=== PATIENT | male | born 1985 | race Caucasian/White ===

== ENCOUNTER 2016-11-30 10:03 | Emergency (ER) | payer OTHER ==
[~2016-11-30] VITALS: Ht 175.3 cm; Wt 78.0 kg
[2016-11-30 10:09] VITALS: BP 150/97; PULSE 101; RESP 13; TEMP 99.7; O2SAT 94
[2016-11-30 10:15] VITALS: BP 150/97; PULSE 102; RESP 13; TEMP 99.7; O2SAT 94
[2016-11-30 10:36] LABS: BASOPHIL % 0.1 % (0.0-2.0); EOSINOPHIL % 0.2 % (0.0-4.0); HEMATOCRIT 37.4 % (39.0-51.0); HEMO FLAGS DIFF FINAL; LYMPH % 16.9 % (9.0-44.0); LYMPHOCYTE # 0.9 TH/MM3 (1.0-4.8); MEAN CELL VOLUME 83.5 FL (80.0-100.0); MEAN CORPUSCULAR HEMOGLOBIN 29.5 PG (27.0-34.0); MEAN CORPUSCULAR HGB CONC 35.4 % (32.0-36.0); MONO % 10.2 % (0.0-8.0); NEUT % 72.6 % (16.0-70.0); PLATELET COUNT 157 TH/MM3 (150-450); RED BLOOD COUNT 4.48 MIL/MM3 (4.50-5.90); RED CELL DISTRIBUTION WIDTH 12.6 % (11.6-17.2); WHITE BLOOD COUNT 5.5 TH/MM3 (4.0-11.0)
[2016-11-30 10:38] LABS: BICARBONATE 30.3 MEQ/L (21.0-32.0); POTASSIUM 3.2 MEQ/L (3.5-5.1)
[2016-11-30] MEDS ORDERED: POTASSIUM CHLORIDE 20 MEQ CONTROLLED RELEASE TAB PO ONE (10:45)
[2016-11-30 12:12] VITALS: BP 125/74; PULSE 92; RESP 16; O2SAT 95
--- NOTE | 2016-11-30 12:29 | PD ---
HPI Chief Complaint: Alcohol/Drug Intoxication Time Seen by Provider: 10:10 Travel History International Travel<30 days: No Contact w/Intl Traveler<30days: No Traveled to known affect area: No History of Present Illness HPI 30-year-old male came to the emergency room brought by EMS after being found unresponsive. Patient was given 0.8 mg of IV Narcan which woke him up. Last dose of Narcan was at 9:45 AM. Patient currently is awake and answering questions. He said he was clean for a while and then today he got heroin and shot in his IV. He does not appear to be in any distress currently. He is very apologetic. Vital signs were stable. As per EMS the blood sugar was 245. [facility] Past Medical History Narrative Medical List of his past medical, surgical, social and family history was reviewed from the nursing note. Medical History: Denies Significant Hx Diminished Hearing: No Immunizations Current: Yes Past Surgical History Surgical History: No Previous Surgery Social History Alcohol Use: Yes Tobacco Use: No Substance Use: Yes (IV DILAUDID, cocaine AND CRACK) Allergies-Medications (Allergen,Severity, Reaction): Coded Allergies: No Known Allergies (Unverified , 11/30/16) Per pt. Comments No known drug allergies. Reported Meds & Prescriptions Reported Meds & Active Scripts Active No Active Prescriptions or Reported Medications Narrative Medication List of his home medications reviewed from the nursing note. Review of Systems Except as stated in HPI: all other systems reviewed are Neg Physical Exam Narrative GENERAL: Awake, alert, no obvious distress SKIN: Focused skin assessment warm/dry. HEAD: Atraumatic. Normocephalic. EYES: Pupils equal and round. No scleral icterus. No injection or drainage. ENT: No nasal bleeding or discharge. Mucous membranes pink and moist. NECK: Trachea midline. No JVD. CARDIOVASCULAR: Regular rate and rhythm. No murmur appreciated. RESPIRATORY: No accessory muscle use. Clear to auscultation. Breath sounds equal bilaterally. GASTROINTESTINAL: Abdomen soft, non-tender, nondistended. Hepatic and splenic margins not palpable. MUSCULOSKELETAL: No obvious deformities. No clubbing. No cyanosis. No edema. NEUROLOGICAL: Awake and alert. No obvious cranial nerve deficits. Motor grossly within normal limits. Normal speech. PSYCHIATRIC: Appropriate mood and affect; insight and judgment normal. Data Data Last Documented VS Vital Signs Date Time Temp Pulse Resp B/P Pulse Ox O2 Delivery O2 Flow Rate FiO2 11/30/16 12:12 92 16 125/74 95 Room Air 11/30/16 10:15 99.7 Orders Complete Blood Count With Diff (11/30/16 10:10) Basic Metabolic Panel (Bmp) (11/30/16 10:10) ^ Saline Lock (11/30/16 10:10) Potassium Chloride (Kcl) (11/30/16 10:45) Labs Laboratory Tests Test 11/30/16 10:15 White Blood Count 5.5 TH/MM3 Red Blood Count 4.48 MIL/MM3 Hemoglobin 13.2 GM/DL Hematocrit 37.4 % Mean Corpuscular Volume 83.5 FL Mean Corpuscular Hemoglobin 29.5 PG Mean Corpuscular Hemoglobin 35.4 % Concent Red Cell Distribution Width 12.6 % Platelet Count 157 TH/MM3 Mean Platelet Volume 7.6 FL Neutrophils (%) (Auto) 72.6 % Lymphocytes (%) (Auto) 16.9 % Monocytes (%) (Auto) 10.2 % Eosinophils (%) (Auto) 0.2 % Basophils (%) (Auto) 0.1 % Neutrophils # (Auto) 4.0 TH/MM3 Lymphocytes # (Auto) 0.9 TH/MM3 Monocytes # (Auto) 0.6 TH/MM3 Eosinophils # (Auto) 0.0 TH/MM3 Basophils # (Auto) 0.0 TH/MM3 CBC Comment DIFF FINAL Differential Comment Sodium Level 137 MEQ/L Potassium Level 3.2 MEQ/L Chloride Level 99 MEQ/L Carbon Dioxide Level 30.3 MEQ/L Anion Gap 8 MEQ/L Blood Urea Nitrogen 13 MG/DL Creatinine 1.22 MG/DL Estimat Glomerular Filtration 69 ML/MIN Rate Random Glucose 215 MG/DL Calcium Level 8.0 MG/DL MDM Medical Decision Making Medical Screen Exam Complete: Yes Emergency Medical Condition: Yes Medical Record Reviewed: Yes Differential Diagnosis Heroin overdose Narrative Course 12:27 PM patient was told that he would be observed for 4 hours from the time his last Narcan does. This ends at 1:30 PM and if he continues to do [facility] discharge him. Currently he is still stable and awake. Procedures EKG Prior to Arrival: No Diagnosis Primary Impression: Heroin overdose Qualified Code: T40.1X1A - Heroin overdose, accidental or unintentional, initial encounter Referrals: Primary Care Physician Additional Instructions: Please follow-up with your primary care in couple days. He should not be using illegal substances been injecting into the IV. It's very dangerous and full of potential of severe infections. Return to the ER if the condition worsens or any other new concerns. Scripts No Active Prescriptions or Reported Meds Disposition: 01 DISCHARGE HOME Condition: Stable Fei Bravo MD Nov 30, 2016 12:29
== END 2016-11-30 13:49 | disposition home or self-care (01) ==
LOC: NEPE 10:03
DX: T40.1X1A Poisoning by heroin, accidental (unintentional), initial encounter (principal)
CPT/HCPCS: 80048; 85025; 99283

== ENCOUNTER 2017-03-25 18:48 | Emergency (ER) | payer OTHER ==
[~2017-03-25] VITALS: Ht 172.7 cm; Wt 70.0 kg
[2017-03-25 20:36] VITALS: BP 128/58; PULSE 98; RESP 18; TEMP 98.1; O2SAT 99
--- NOTE | 2017-03-25 21:49 | PD ---
HPI Chief Complaint: Psychiatric Symptoms Time Seen by Provider: 21:46 Travel History International Travel<30 days: No Contact w/Intl Traveler<30days: No Traveled to known affect area: No History of Present Illness HPI Patient's 31-year-old male brought into the emergency department for psychiatric evaluation under Mcfadden act. The Mcfadden act report states patient was jumping into traffic, he was laying in the [place]bes flailing his legs and pulling his shorts down. He states it wasn't him and it was a case of mistaken identity. He has no physical complaints at this time. He denies any suicidal or homicidal ideations, he denies any hallucinations. He reports a history of IV drug use states he has not done that 5 years. He does endorse occasional marijuana and cocaine use. He denies any significant past medical history or drug allergies. [facility] Past Medical History Medical History: Denies Significant Hx Diminished Hearing: No Immunizations Current: Yes Social History Alcohol Use: Yes Tobacco Use: No Substance Use: Yes (IV DILAUDID, cocaine AND CRACK) Allergies-Medications (Allergen,Severity, Reaction): Coded Allergies: No Known Allergies (Unverified , 03/25/17) Per pt. Reported Meds & Prescriptions Reported Meds & Active Scripts Active No Active Prescriptions or Reported Medications Review of Systems Except as stated in HPI: all other systems reviewed are Neg Psychiatric: Positive: Mood Disorder, Substance Abuse Physical Exam Narrative GENERAL: Thin, well-developed, alert male. Appears jumpy in no acute distress. SKIN: Warm and dry. HEAD: Atraumatic. Normocephalic. EYES: Pupils equal and round. No scleral icterus. No injection or drainage. ENT: No nasal bleeding or discharge. Mucous membranes pink and moist. NECK: Trachea midline. No JVD. CARDIOVASCULAR: Regular rate and rhythm. RESPIRATORY: No accessory muscle use. Clear to auscultation. Breath sounds equal bilaterally. GASTROINTESTINAL: Abdomen soft, non-tender, nondistended. Hepatic and splenic margins not palpable. MUSCULOSKELETAL: Extremities without clubbing, cyanosis, or edema. No obvious deformities. NEUROLOGICAL: Awake and alert. No obvious cranial nerve deficits. Motor grossly within normal limits. Five out of 5 muscle strength in the arms and legs. Normal speech. PSYCHIATRIC: Appropriate mood and affect; insight and judgment normal. Data Data Last Documented VS Vital Signs Date Time Temp Pulse Resp B/P (MAP) Pulse Ox O2 Delivery O2 Flow Rate FiO2 03/25/17 20:36 98.1 98 18 128/58 (81) 99 Room Air Orders Orders Complete Blood Count With Diff (03/25/17 20:43) Comprehensive Metabolic Panel (03/25/17 20:43) Psych Screen (03/25/17 20:43) Drug Screen, Random Urine (03/25/17 20:43) Alcohol (Ethanol) (03/25/17 20:43) Salicylates (Aspirin) (03/25/17 20:43) Tylenol (Acetaminophen) (03/25/17 20:43) Labs Laboratory Tests Test 03/25/17 21:55 White Blood Count 11.6 TH/MM3 Red Blood Count 4.75 MIL/MM3 Hemoglobin 13.0 GM/DL Hematocrit 38.4 % Mean Corpuscular Volume 81.0 FL Mean Corpuscular Hemoglobin 27.4 PG Mean Corpuscular Hemoglobin Concent 33.8 % Red Cell Distribution Width 13.2 % Platelet Count 210 TH/MM3 Mean Platelet Volume 7.7 FL Neutrophils (%) (Auto) 77.3 % Lymphocytes (%) (Auto) 14.3 % Monocytes (%) (Auto) 7.8 % Eosinophils (%) (Auto) 0.4 % Basophils (%) (Auto) 0.2 % Neutrophils # (Auto) 9.0 TH/MM3 Lymphocytes # (Auto) 1.7 TH/MM3 Monocytes # (Auto) 0.9 TH/MM3 Eosinophils # (Auto) 0.0 TH/MM3 Basophils # (Auto) 0.0 TH/MM3 CBC Comment DIFF FINAL Differential Comment Blood Urea Nitrogen 20 MG/DL Creatinine 1.14 MG/DL Random Glucose 90 MG/DL Total Protein 7.9 GM/DL Albumin 4.1 GM/DL Calcium Level 8.6 MG/DL Alkaline Phosphatase 77 U/L Aspartate Amino Transf (AST/SGOT) 48 U/L Alanine Aminotransferase (ALT/SGPT) 44 U/L Total Bilirubin 0.9 MG/DL Sodium Level 133 MEQ/L Potassium Level 3.8 MEQ/L Chloride Level 99 MEQ/L Carbon Dioxide Level 26.5 MEQ/L Anion Gap 8 MEQ/L Estimat Glomerular Filtration Rate 74 ML/MIN Salicylates Level LESS THAN 1.7 MG/DL Urine Opiates Screen POS Acetaminophen Level LESS THAN 2.0 MCG/ML Urine Barbiturates Screen NEG Urine Amphetamines Screen POS Urine Benzodiazepines Screen NEG Urine Cocaine Screen NEG Urine Cannabinoids Screen NEG Ethyl Alcohol Level LESS THAN 3 MG/DL MDM Medical Decision Making Medical Screen Exam Complete: Yes Emergency Medical Condition: Yes Interpretation(s) Laboratory Tests Test 03/25/17 21:55 White Blood Count 11.6 TH/MM3 Red Blood Count 4.75 MIL/MM3 Hemoglobin 13.0 GM/DL Hematocrit 38.4 % Mean Corpuscular Volume 81.0 FL Mean Corpuscular Hemoglobin 27.4 PG Mean Corpuscular Hemoglobin Concent 33.8 % Red Cell Distribution Width 13.2 % Platelet Count 210 TH/MM3 Mean Platelet Volume 7.7 FL Neutrophils (%) (Auto) 77.3 % Lymphocytes (%) (Auto) 14.3 % Monocytes (%) (Auto) 7.8 % Eosinophils (%) (Auto) 0.4 % Basophils (%) (Auto) 0.2 % Neutrophils # (Auto) 9.0 TH/MM3 Lymphocytes # (Auto) 1.7 TH/MM3 Monocytes # (Auto) 0.9 TH/MM3 Eosinophils # (Auto) 0.0 TH/MM3 Basophils # (Auto) 0.0 TH/MM3 CBC Comment DIFF FINAL Differential Comment Blood Urea Nitrogen 20 MG/DL Creatinine 1.14 MG/DL Random Glucose 90 MG/DL Total Protein 7.9 GM/DL Albumin 4.1 GM/DL Calcium Level 8.6 MG/DL Alkaline Phosphatase 77 U/L Aspartate Amino Transf (AST/SGOT) 48 U/L Alanine Aminotransferase (ALT/SGPT) 44 U/L Total Bilirubin 0.9 MG/DL Sodium Level 133 MEQ/L Potassium Level 3.8 MEQ/L Chloride Level 99 MEQ/L Carbon Dioxide Level 26.5 MEQ/L Anion Gap 8 MEQ/L Estimat Glomerular Filtration Rate 74 ML/MIN Salicylates Level LESS THAN 1.7 MG/DL Urine Opiates Screen POS Acetaminophen Level LESS THAN 2.0 MCG/ML Urine Barbiturates Screen NEG Urine Amphetamines Screen POS Urine Benzodiazepines Screen NEG Urine Cocaine Screen NEG Urine Cannabinoids Screen NEG Ethyl Alcohol Level LESS THAN 3 MG/DL Vital Signs Date Time Temp Pulse Resp B/P (MAP) Pulse Ox O2 Delivery O2 Flow Rate FiO2 03/25/17 20:36 98.1 98 18 128/58 (81) 99 Room Air Differential Diagnosis Mood disorder versus substance abuse versus suicidal ideations versus psychosis versus metabolic abnormality versus other Narrative Course Patient was brought into the emergency Department under Mcfaddne act for psychiatric evaluation after having been witnessed acting abnormally and and potentially self harming way. He denies doing this. Patient's vital signs are stable. Mental health screening discussed with the patient. Psychiatric screen ordered. Labs reviewed, no acute findings identified. Urine drug screen is positive for methamphetamines and opiates. Patient is medically clear for psychiatric evaluation at this time. Diagnosis Primary Impression: Medical clearance for psychiatric admission Additional Impression: Substance abuse Scripts No Active Prescriptions or Reported Meds Condition: Stable Joselyn Rosado [facility] Mar 25, 2017 21:49
[2017-03-25 22:16] LABS: BASOPHIL % 0.2 % (0.0-2.0); EOSINOPHIL % 0.4 % (0.0-4.0); HEMATOCRIT 38.4 % (39.0-51.0); HEMO FLAGS DIFF FINAL; LYMPH % 14.3 % (9.0-44.0); LYMPHOCYTE # 1.7 TH/MM3 (1.0-4.8); MEAN CORPUSCULAR HEMOGLOBIN 27.4 PG (27.0-34.0); MEAN CORPUSCULAR HGB CONC 33.8 % (32.0-36.0); MONO % 7.8 % (0.0-8.0); NEUT % 77.3 % (16.0-70.0); PLATELET COUNT 210 TH/MM3 (150-450); RED BLOOD COUNT 4.75 MIL/MM3 (4.50-5.90); RED CELL DISTRIBUTION WIDTH 13.2 % (11.6-17.2); WHITE BLOOD COUNT 11.6 TH/MM3 (4.0-11.0)
[2017-03-25 22:38] LABS: ANION GAP 8 MEQ/L (5-15); AST (GOT) 48 U/L (15-37); BICARBONATE 26.5 MEQ/L (21.0-32.0); BLOOD UREA NITROGEN 20 MG/DL (7-18); CHLORIDE 99 MEQ/L (98-107); GLOMERULAR FILTRATION RATE 74 ML/MIN (>89); POTASSIUM 3.8 MEQ/L (3.5-5.1); SODIUM (NA) 133 MEQ/L (136-145)
[2017-03-25 22:39] LABS: ALT (GPT) 44 U/L (12-78)
[2017-03-25 22:40] LABS: ALCOHOL LESS THAN 3 MG/DL (0-5)
[2017-03-25 22:42] LABS: ALKALINE PHOSPHATASE 77 U/L (45-117); TOTAL BILIRUBIN ADULT 0.9 MG/DL (0.2-1.0)
[2017-03-25 22:46] LABS: ACETAMINOPHEN LESS THAN 2.0 MCG/ML (10.0-30.0)
[2017-03-25 23:58] VITALS: BP 109/60; PULSE 58; RESP 16
[2017-03-26 02:08] VITALS: BP 105/57; PULSE 56; RESP 18
[2017-03-26 06:25] VITALS: BP 107/63; PULSE 62; RESP 16
[2017-03-26 12:04] VITALS: BP 109/60; PULSE 63; RESP 16; O2SAT 98
--- NOTE | 2017-03-26 14:30 | PD ---
Physical Exam Time Seen by Provider: 14:29 ASHLEY Sampson has evaluated the patient, lifted a act and the patient will be discharged. Data Data Last Documented VS Vital Signs Date Time Temp Pulse Resp B/P (MAP) Pulse Ox O2 Delivery O2 Flow Rate FiO2 03/26/17 12:04 63 16 109/60 (76) 98 Room Air 03/25/17 20:36 98.1 Orders Orders Complete Blood Count With Diff (03/25/17 20:43) Comprehensive Metabolic Panel (03/25/17 20:43) Psych Screen (03/25/17 20:43) Drug Screen, Random Urine (03/25/17 20:43) Alcohol (Ethanol) (03/25/17 20:43) Salicylates (Aspirin) (03/25/17 20:43) Tylenol (Acetaminophen) (03/25/17 20:43) Diet Regular Basic (03/26/17 Breakfast) Diet Regular Basic (03/26/17 Lunch) Labs Laboratory Tests Test 03/25/17 21:55 White Blood Count 11.6 TH/MM3 Red Blood Count 4.75 MIL/MM3 Hemoglobin 13.0 GM/DL Hematocrit 38.4 % Mean Corpuscular Volume 81.0 FL Mean Corpuscular Hemoglobin 27.4 PG Mean Corpuscular Hemoglobin Concent 33.8 % Red Cell Distribution Width 13.2 % Platelet Count 210 TH/MM3 Mean Platelet Volume 7.7 FL Neutrophils (%) (Auto) 77.3 % Lymphocytes (%) (Auto) 14.3 % Monocytes (%) (Auto) 7.8 % Eosinophils (%) (Auto) 0.4 % Basophils (%) (Auto) 0.2 % Neutrophils # (Auto) 9.0 TH/MM3 Lymphocytes # (Auto) 1.7 TH/MM3 Monocytes # (Auto) 0.9 TH/MM3 Eosinophils # (Auto) 0.0 TH/MM3 Basophils # (Auto) 0.0 TH/MM3 CBC Comment DIFF FINAL Differential Comment Blood Urea Nitrogen 20 MG/DL Creatinine 1.14 MG/DL Random Glucose 90 MG/DL Total Protein 7.9 GM/DL Albumin 4.1 GM/DL Calcium Level 8.6 MG/DL Alkaline Phosphatase 77 U/L Aspartate Amino Transf (AST/SGOT) 48 U/L Alanine Aminotransferase (ALT/SGPT) 44 U/L Total Bilirubin 0.9 MG/DL Sodium Level 133 MEQ/L Potassium Level 3.8 MEQ/L Chloride Level 99 MEQ/L Carbon Dioxide Level 26.5 MEQ/L Anion Gap 8 MEQ/L Estimat Glomerular Filtration Rate 74 ML/MIN Salicylates Level LESS THAN 1.7 MG/DL Urine Opiates Screen POS Acetaminophen Level LESS THAN 2.0 MCG/ML Urine Barbiturates Screen NEG Urine Amphetamines Screen POS Urine Benzodiazepines Screen NEG Urine Cocaine Screen NEG Urine Cannabinoids Screen NEG Ethyl Alcohol Level LESS THAN 3 MG/DL MDM Supervised Visit with TOYA: No Narrative Course ASHLEY Chambers has evaluated the patient, lifted the Mcfadden act and the patient will be discharged home. Patient contracts safety. Denies suicidal or homicidal ideations. Patient will be provided community resource packet to DAMIAN RICHARDSON for follow-up. Has friends and family for support. Patient is medically cleared for discharge. Diagnosis Primary Impression: Medical clearance for psychiatric admission Additional Impression: Substance abuse Referrals: DYLAN (Out patient) [facility] Primary Care Physician Psychiatrist Skyler [facility] Patient Instructions: General Instructions, Polysubstance Abuse (ED) Additional Instruction: Contract safety to your self and others Stop using drugs Follow-up with psychiatry Follow-up with primary care provider Follow-up with Sridhar Beck Return to the emergency department immediately with worsening of symptoms Med/Other Pt SpecificInfo: No Meds Exist/No RX given Scripts No Active Prescriptions or Reported Meds Disposition: 01 DISCHARGE HOME Condition: Stable Tanya Zuleta Mar 26, 2017 14:30
--- NOTE | 2017-03-26 14:34 | PD ---
History of Present Illness Chief Complaint: Psychiatric Symptoms Time Seen by Provider: 14:10 Travel History International Travel<30 Days: No Contact w/Intl Traveler<30days: No Known affected area: No Legal Status Legal Status: Mc[employer] Act Mcfadden Act Signed By: Atul León History of Present Illness: History of Present Illness HPI Patient's 31-year-old male with no reported psychiatric history who is brought into the emergency department under Mcfadden act initiated bt TRENT. The Mcfadden act report states patient was jumping into traffic, he was laying in the [place] flailing his legs and pulling his shorts down. He denies any suicidal or homicidal ideations, he denies any hallucinations. He reports a history of IV drug use states he has not done that 5 years. Current toxicology is positive for amphetamines as well as opiates. He does endorse occasional marijuana and cocaine use. Patient seen. EMR reviewed. he has been monitored and has not presented any behavioral concerns. There is no psychosis and no lisa. Denies any suicidal or homicidal ideation, intent or plan. He continues to claim that this was a case of mistaken identity and that he was sitting on the side of the road waiting for a ride. He admits to use of substances but is not interested in treatment. PFSH Past Medical History Medical History: Denies Significant Hx Diabetes: No Patient Takes Glucophage: No Diminished Hearing: No Immunizations Current: Yes Tetanus Vaccination: < 5 Years Influenza Vaccination: No Past Surgical History Surgical History: No Previous Surgery Psychiatric History Psychiatric History Hx Psychiatric Treatment: DENIES any . HX OF MCFADDEN ACT WHILE UNDER THE INFLUENCE OF SUBSTANCES History of Inpatient Treatment: No Guns or firearms in home: No Social History Single male, homeless, unemployed. Hx Alcohol Use: Yes (OCCASIONAL) Hx Tobacco Use: No Hx Substance Use: Yes (IV DILAUDID, cocaine AND CRACK) Substance Use Type: Heroin, Cocaine, Synth Opiates-Pain Pills Other Substances Used: admits to IV dilaudid yesterday Hx of Substance Use Treatment: Yes ([facility]) Family Psychiatric History Negative Allergies-Medications (Allergen,Severity, Reaction): Coded Allergies: No Known Allergies (Unverified , 03/25/17) Per pt. Reported Meds & Prescriptions Reported Meds & Active Scripts Active No Active Prescriptions or Reported Medications Review of Systems Except as stated in HPI: all other systems reviewed are Neg Mental Status Examination Appearance: Appropriate Consciousness: Alert Orientation: x4 Motor Activity: Normal gait Speech: Unremarkable Language: Adequate Fund of Knowledge: Adequate Attention and Concentration: Adequate Memory: Unremarkable Mood: Appropriate Affect: Appropriate Thought Process & Associations: Intact, Logical, Goal directed Thought Content: Appropriate Hallucination Type: None Delusion Type: None Suicidal Ideation: No Suicidal Plan: No Suicidal Intention: No Homicidal Ideation: No Homicidal Plan: No Homicidal Intention: No Insight: Fair Judgment: Adequate MDM Medical Decision Making Medical Record Reviewed: Yes Assessment/Plan Patient's 31-year-old male with no reported psychiatric history who is brought into the emergency department under [employer] act initiated by TRENT. The Mcfadden act report states patient was jumping into traffic, he was laying in the [place] flailing his legs and pulling his shorts down. He denies any suicidal or homicidal ideations, he denies any hallucinations. Current toxicology is positive for amphetamines as well as opiates. He continues to deny any suicidal or homicidal ideation. There is no psychosis and no lisa. He continues to state that this was a case of mistaken identity. Patient does not present any cognitive deficits, presents no criteria for continued hold under the [employer] act. There is no evidence of any unstable mental illness. he is not motivated to engage in treatment for substance abuse. Lift BA and discharge. Psychiatrically clear for discharge. Orders Orders Complete Blood Count With Diff (03/25/17 20:43) Comprehensive Metabolic Panel (03/25/17 20:43) Psych Screen (03/25/17 20:43) Drug Screen, Random Urine (03/25/17 20:43) Alcohol (Ethanol) (03/25/17 20:43) Salicylates (Aspirin) (03/25/17 20:43) Tylenol (Acetaminophen) (03/25/17 20:43) Diet Regular Basic (03/26/17 Breakfast) Diet Regular Basic (03/26/17 Lunch) Results Vital Signs Date Time Temp Pulse Resp B/P (MAP) Pulse Ox O2 Delivery O2 Flow Rate FiO2 03/26/17 12:04 63 16 109/60 (76) 98 Room Air 03/26/17 06:25 62 16 107/63 (78) 03/26/17 02:08 56 18 105/57 (73) 03/25/17 23:58 58 16 109/60 (76) 03/25/17 20:36 98.1 98 18 128/58 (81) 99 Room Air Laboratory Tests Test 03/25/17 21:55 White Blood Count 11.6 Red Blood Count 4.75 Hemoglobin 13.0 Hematocrit 38.4 Mean Corpuscular Volume 81.0 Mean Corpuscular Hemoglobin 27.4 Mean Corpuscular Hemoglobin Concent 33.8 Red Cell Distribution Width 13.2 Platelet Count 210 Mean Platelet Volume 7.7 Neutrophils (%) (Auto) 77.3 Lymphocytes (%) (Auto) 14.3 Monocytes (%) (Auto) 7.8 Eosinophils (%) (Auto) 0.4 Basophils (%) (Auto) 0.2 Neutrophils # (Auto) 9.0 Lymphocytes # (Auto) 1.7 Monocytes # (Auto) 0.9 Eosinophils # (Auto) 0.0 Basophils # (Auto) 0.0 CBC Comment DIFF FINAL Differential Comment Blood Urea Nitrogen 20 Creatinine 1.14 Random Glucose 90 Total Protein 7.9 Albumin 4.1 Calcium Level 8.6 Alkaline Phosphatase 77 Aspartate Amino Transf (AST/SGOT) 48 Alanine Aminotransferase (ALT/SGPT) 44 Total Bilirubin 0.9 Sodium Level 133 Potassium Level 3.8 Chloride Level 99 Carbon Dioxide Level 26.5 Anion Gap 8 Estimat Glomerular Filtration Rate 74 Salicylates Level LESS THAN 1.7 Urine Opiates Screen POS Acetaminophen Level LESS THAN 2.0 Urine Barbiturates Screen NEG Urine Amphetamines Screen POS Urine Benzodiazepines Screen NEG Urine Cocaine Screen NEG Urine Cannabinoids Screen NEG Ethyl Alcohol Level LESS THAN 3 Diagnosis Primary Impression: Substance abuse Additional Impressions: Opiate abuse, continuous Methamphetamine abuse Psychiatrically Cleared: Yes Med/ Other Pt Specific Info: No Meds Exist/No RX given Prescriptions No Active Prescriptions or Reported Meds Disposition: 01 DISCHARGE HOME Condition: Stable Problem Qualifiers Trish Malcolm Mar 26, 2017 14:34
== END 2017-03-26 14:58 | disposition home or self-care (01) ==
LOC: NEPD 18:48 → NEPJ 03-26 14:58
DX: F19.10 Other psychoactive substance abuse, uncomplicated (principal); F11.10 Opioid abuse, uncomplicated; F15.10 Other stimulant abuse, uncomplicated; F12.90 Cannabis use, unspecified, uncomplicated; F14.90 Cocaine use, unspecified, uncomplicated; Z59.0 Homelessness
CPT/HCPCS: 80053; 80307; 85025; 99284

== ENCOUNTER 2017-04-02 21:12 | Emergency (ER) | payer SELFPAY ==
[~2017-04-02] VITALS: Ht 172.7 cm; Wt 70.0 kg
[2017-04-02 21:21] VITALS: BP 120/59; PULSE 132; RESP 30; TEMP 100.1; O2SAT 92
[2017-04-02] MEDS ORDERED: SODIUM CHLOR 0.9% 1000 ML INJ 1,000 ML IV ONE ×2 (21:30)
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
--- NOTE | 2017-04-02 21:40 | RADRPT ---
EXAM DATE/TIME: 04/02/2017 21:28 [place] COMPARISON: No previous studies available for comparison. INDICATIONS : Altered mental status. MEDICAL HISTORY : IV drug use. SURGICAL HISTORY : None. ENCOUNTER: Initial ACUITY: 1 day PAIN SCORE: Non-responsive. LOCATION: Bilateral chest FINDINGS: A single view of the chest demonstrates the lungs to be symmetrically aerated without evidence of mas s, infiltrate or effusion. The cardiomediastinal contours are unremarkable. Osseous structures are intact. CONCLUSION: Normal examination. Aleksandar Newman MD on April 02, 2017 at 21:38 Board Certified Radiologist. This report was verified electronically.
[2017-04-02 22:03] LABS: AUTOMATED NEUTROPHIL # 6.8 TH/MM3 (1.8-7.7); BASOPHIL % 0.2 % (0.0-2.0); EOSINOPHIL # 0.1 TH/MM3 (0-0.4); EOSINOPHIL % 0.6 % (0.0-4.0); HEMATOCRIT 35.6 % (39.0-51.0); HEMO FLAGS DIFF FINAL; LYMPH % 15.3 % (9.0-44.0); LYMPHOCYTE # 1.4 TH/MM3 (1.0-4.8); MEAN CELL VOLUME 81.2 FL (80.0-100.0); MEAN CORPUSCULAR HGB CONC 34.4 % (32.0-36.0); MONO % 7.7 % (0.0-8.0); NEUT % 76.2 % (16.0-70.0); PLATELET COUNT 171 TH/MM3 (150-450); RED BLOOD COUNT 4.38 MIL/MM3 (4.50-5.90); RED CELL DISTRIBUTION WIDTH 13.6 % (11.6-17.2); WHITE BLOOD COUNT 8.9 TH/MM3 (4.0-11.0)
[2017-04-02 22:21] LABS: ANION GAP 8 MEQ/L (5-15); BICARBONATE 24.8 MEQ/L (21.0-32.0); BLOOD UREA NITROGEN 12 MG/DL (7-18); CHLORIDE 106 MEQ/L (98-107); GLOMERULAR FILTRATION RATE 77 ML/MIN (>89); POTASSIUM 3.9 MEQ/L (3.5-5.1); SODIUM (NA) 139 MEQ/L (136-145)
[2017-04-02 22:25] LABS: ALCOHOL LESS THAN 3 MG/DL (0-5); CREATINE KINASE 321 U/L (39-308)
--- NOTE | 2017-04-03 19:59 | EKG ---
Date Performed: 04/02/2017 Time Performed: 21:31:48 PTAGE: 31 years EKG: SINUS TACHYCARDIA INDETERMINATE AXIS ABNORMAL RHYTHM ECG PREVIOUS TRACING : 07/03/2015 22.28 Compared to prior tracing no significant change DOCTOR: Waqar Jara Interpretating Date/Time 04/03/2017 19:58:02
== END 2017-04-02 23:15 | disposition home or self-care (01) ==
LOC: NEPE 21:12
DX: F15.10 Other stimulant abuse, uncomplicated (principal); R94.31 Abnormal electrocardiogram [ECG] [EKG]; R00.0 Tachycardia, unspecified
CPT/HCPCS: 71010; 80048; 80307; 82550; 82552; 84484; 85025; 93005; 96360; 99285; J7030

== ENCOUNTER 2017-06-14 18:43 | Emergency (ER) | payer SELFPAY ==
[~2017-06-14] VITALS: Ht 177.8 cm; Wt 70.0 kg
[2017-06-14 18:44] VITALS: BP 158/122; PULSE 163; RESP 22; TEMP 103.1; O2SAT 100
[2017-06-14] MEDS ORDERED: ONDANSETRON HCL 4 MG/2 ML VIAL ONE (18:47)
[2017-06-14] MEDS ORDERED: LORazepam 2 MG/ML VIAL ONE (18:51)
[2017-06-14] MEDS ORDERED: SODIUM CHLOR 0.9% 1000 ML INJ 1,000 ML IV ONE ×2 (18:52→19:00)
[2017-06-14] MEDS ORDERED: SODIUM CHLORIDE 0.9% FLUSH 10 ML FLUSH IVF PRN (19:00)
[2017-06-14] MEDS ORDERED: LORazepam 2 MG/ML VIAL IV PUSH ONE ×4 (19:00→21:15)
[2017-06-14] MEDS ORDERED: ONDANSETRON HCL 4 MG/2 ML VIAL IV PUSH ONE (19:15)
[2017-06-14 19:33] LABS: AUTOMATED NEUTROPHIL # 11.7 TH/MM3 (1.8-7.7); BASOPHIL # 0.1 TH/MM3 (0-0.2); BASOPHIL % 0.6 % (0.0-2.0); EOSINOPHIL % 0.2 % (0.0-4.0); HEMATOCRIT 38.2 % (39.0-51.0); HEMOGLOBIN 12.9 GM/DL (13.0-17.0); LYMPH % 24.9 % (9.0-44.0); LYMPHOCYTE # 4.6 TH/MM3 (1.0-4.8); MEAN CELL VOLUME 82.5 FL (80.0-100.0); MEAN CORPUSCULAR HGB CONC 33.9 % (32.0-36.0); MEAN PLATELET VOLUME 7.4 FL (7.0-11.0); MONO % 11.6 % (0.0-8.0); MONOCYTE # 2.2 TH/MM3 (0-0.9); NEUT % 62.7 % (16.0-70.0); PLATELET COUNT 308 TH/MM3 (150-450); RED BLOOD COUNT 4.62 MIL/MM3 (4.50-5.90); RED CELL DISTRIBUTION WIDTH 14.3 % (11.6-17.2); WHITE BLOOD COUNT 18.6 TH/MM3 (4.0-11.0)
--- NOTE | 2017-06-14 19:40 | PD ---
HPI Chief Complaint: OD/ Ingestion Time Seen by Provider: 19:14 Travel History International Travel<30 days: No Contact w/Intl Traveler<30days: No Traveled to known affect area: No History of Present Illness HPI 31-year-old male was brought in by EMS for substance abuse. Patient stated that he took Lortab and methamphetamine this evening. Patient was agitated. PFSH Past Medical History Medical History: Unable to Obtain Diabetes: No Diminished Hearing: No Integumentary: Yes (HX CELLULITUS TO BLAT HAND) Immunizations Current: Yes Tetanus Vaccination: < 5 Years Influenza Vaccination: No Past Surgical History Surgical History: No Previous Surgery Social History Alcohol Use: Yes (OCCASIONAL) Tobacco Use: No Substance Use: Yes (IV DILAUDID, METH, CRACK, HEROIN) Allergies-Medications (Allergen,Severity, Reaction): Coded Allergies: No Known Allergies (Unverified , 04/02/17) Per pt. Reported Meds & Prescriptions Reported Meds & Active Scripts Active No Active Prescriptions or Reported Medications Review of Systems General / Constitutional: No: Fever Eyes: No: Visual changes HENT: No: Headaches Cardiovascular: No: Chest Pain or Discomfort Respiratory: No: Shortness of Breath Gastrointestinal: No: Abdominal Pain Genitourinary: No: Dysuria Musculoskeletal: No: Pain Skin: No Rash Neurologic: No: Weakness Psychiatric: No: Depression Endocrine: No: Polydipsia Hematologic/Lymphatic: No: Easy Bruising Physical Exam Narrative GENERAL: Well-nourished, well-developed patient. Patient's very agitated, not complaining of anything at this point. SKIN: Patient is diaphoretic. HEAD: Normocephalic. EYES: No scleral icterus. No injection or drainage. Pupils 1.5 mm equal reactive. NECK: Supple, trachea midline. No JVD or lymphadenopathy. CARDIOVASCULAR: Regular rate and rhythm without murmurs, gallops, or rubs. RESPIRATORY: Breath sounds equal bilaterally. No accessory muscle use. GASTROINTESTINAL: Abdomen soft, non-tender, nondistended. MUSCULOSKELETAL: No cyanosis, or edema. BACK: Nontender without obvious deformity. No CVA tenderness. Neurologic exam: Patient's agitated combative. Patient does not answer questions appropriately. Patient moves all extremities well. No obvious focal neurological deficit. Data Data Last Documented VS Vital Signs Date Time Temp Pulse Resp B/P (MAP) Pulse Ox O2 Delivery O2 Flow Rate FiO2 12/28/17 21:57 101 16 111/72 (85) 99 Nasal Cannula 2.00 06/14/17 18:44 103.1 Orders Orders Ondansetron Inj (Zofran Inj) (06/14/17 18:47) Lorazepam Inj (Ativan Inj) (06/14/17 18:51) Complete Blood Count With Diff (06/14/17 18:52) Comprehensive Metabolic Panel (06/14/17 18:52) Iv Access Insert/Monitor (06/14/17 18:52) Ecg Monitoring (06/14/17 18:52) Oximetry (06/14/17 18:52) Lorazepam Inj (Ativan Inj) (06/14/17 19:00) Sodium Chloride 0.9% Flush (Ns Flush) (06/14/17 19:00) Sodium Chlor 0.9% 1000 Ml Inj (Ns 1000 M (06/14/17 18:52) Drug Screen, Random Urine (06/14/17 18:52) Alcohol (Ethanol) (06/14/17 18:52) Salicylates (Aspirin) (06/14/17 18:52) Tylenol (Acetaminophen) (06/14/17 18:52) Sodium Chlor 0.9% 1000 Ml Inj (Ns 1000 M (06/14/17 19:00) Ondansetron Inj (Zofran Inj) (06/14/17 19:15) Lorazepam Inj (Ativan Inj) (06/14/17 19:15) Lorazepam Inj (Ativan Inj) (06/14/17 19:30) Dextrose 50% In Jose A (Vial) Inj (D50w (Vi (06/14/17 20:45) Dextrose 50% In Jose A (Vial) Inj (D50w (Vi (06/14/17 21:00) Lorazepam Inj (Ativan Inj) (06/14/17 21:15) Labs Laboratory Tests Test 06/14/17 19:00 06/15/17 02:50 White Blood Count 18.6 TH/MM3 Red Blood Count 4.62 MIL/MM3 Hemoglobin 12.9 GM/DL Hematocrit 38.2 % Mean Corpuscular Volume 82.5 FL Mean Corpuscular Hemoglobin 28.0 PG Mean Corpuscular Hemoglobin Concent 33.9 % Red Cell Distribution Width 14.3 % Platelet Count 308 TH/MM3 Mean Platelet Volume 7.4 FL Neutrophils (%) (Auto) 62.7 % Lymphocytes (%) (Auto) 24.9 % Monocytes (%) (Auto) 11.6 % Eosinophils (%) (Auto) 0.2 % Basophils (%) (Auto) 0.6 % Neutrophils # (Auto) 11.7 TH/MM3 Lymphocytes # (Auto) 4.6 TH/MM3 Monocytes # (Auto) 2.2 TH/MM3 Eosinophils # (Auto) 0.0 TH/MM3 Basophils # (Auto) 0.1 TH/MM3 CBC Comment AUTO DIFF Differential Total Cells Counted 100 Neutrophils % (Manual) 65 % Lymphocytes % 25 % Monocytes % 10 % Neutrophils # (Manual) 12.1 TH/MM3 Differential Comment FINAL DIFF MANUAL Platelet Estimate NORMAL Platelet Morphology Comment NORMAL Blood Urea Nitrogen 20 MG/DL Creatinine 1.32 MG/DL Random Glucose 54 MG/DL Total Protein 8.2 GM/DL Albumin 4.1 GM/DL Calcium Level 9.0 MG/DL Alkaline Phosphatase 98 U/L Aspartate Amino Transf (AST/SGOT) 75 U/L Alanine Aminotransferase (ALT/SGPT) 42 U/L Total Bilirubin 1.3 MG/DL Sodium Level 133 MEQ/L Potassium Level 4.5 MEQ/L Chloride Level 97 MEQ/L Carbon Dioxide Level 22.3 MEQ/L Anion Gap 14 MEQ/L Estimat Glomerular Filtration Rate 62 ML/MIN Salicylates Level LESS THAN 1.7 MG/DL Acetaminophen Level LESS THAN 2.0 MCG/ML Ethyl Alcohol Level LESS THAN 3 MG/DL Urine Opiates Screen POS Urine Barbiturates Screen NEG Urine Amphetamines Screen POS Urine Benzodiazepines Screen NEG Urine Cocaine Screen NEG Urine Cannabinoids Screen NEG [facility] Medical Decision Making Medical Screen Exam Complete: Yes Emergency Medical Condition: Yes Interpretation(s) 9 PM. CBC WBC 18.6. Hemoglobin 12.9 hematocrit 30.2. Normal differential. Sodium 133. Chloride 97. Anion gap 14. BUN 20. Creatinine 1.32. GFR 62. Random glucose 54. Urine drug screen positive for opiates and amphetamine. Differential Diagnosis Differential diagnosis including substance-induced mood disorder, electrolyte abnormality, overdose. Narrative Course 31-year-old male with substance abuse, tachycardia, sweating, combative. Normal saline solution 1 L IV bolus. Ativan 2 mg IV given. Ativan 4 mg IV given 2. D50 50 mL IV given. Diagnosis Primary Impression: Substance induced mood disorder Additional Impression: Hypoglycemia Patient Instructions: General Instructions Additional Instructions: Advised [facility]. Med/Other Pt SpecificInfo: No Meds Exist/No RX given Scripts No Active Prescriptions or Reported Meds Disposition: 01 DISCHARGE HOME Condition: Stable Elias Steinberg MD Jun 14, 2017 19:40
[2017-06-14 20:08] LABS: ALBUMIN 4.1 GM/DL (3.4-5.0); ALKALINE PHOSPHATASE 98 U/L (45-117); ALT (GPT) 42 U/L (12-78); AST (GOT) 75 U/L (15-37); BICARBONATE 22.3 MEQ/L (21.0-32.0); BLOOD UREA NITROGEN 20 MG/DL (7-18); CHLORIDE 97 MEQ/L (98-107); CREATININE 1.32 MG/DL (0.60-1.30); GLOMERULAR FILTRATION RATE 62 ML/MIN (>89); GLUCOSE,RANDOM 54 MG/DL (74-106); SODIUM (NA) 133 MEQ/L (136-145); TOTAL BILIRUBIN ADULT 1.3 MG/DL (0.2-1.0); TOTAL PROTEIN 8.2 GM/DL (6.4-8.2)
[2017-06-14 20:09] LABS: ACETAMINOPHEN LESS THAN 2.0 MCG/ML (10.0-30.0)
[2017-06-14 20:10] LABS: LYMPHOCYTES 25 % (9-44); MONOCYTES 10 % (0-8); NEUTROPHIL # MANUAL DIFF 12.1 TH/MM3 (1.8-7.7); POLYS (SEG NEUTROPHILS) 65 % (16-70)
[2017-06-14] MEDS ORDERED: DEXTROSE 50% IN WATER 50 ML VIAL(D50) IV PUSH ONE ×2 (20:45→21:00)
[2017-06-14 21:02] VITALS: RESP 16; O2SAT 98
[2017-06-14 21:57] VITALS: BP 111/72; PULSE 101; RESP 16; O2SAT 99
== END 2017-06-15 06:56 | disposition home or self-care (01) ==
LOC: NEPC 18:43
DX: F19.94 Other psychoactive substance use, unspecified with psychoactive substance-induced mood disorder (principal); E16.2 Hypoglycemia, unspecified
CPT/HCPCS: 80053; 80307; 85007; 85027; 96361; 96374; 96375; 96376; 99284; J2060; J2405; J7030

== ENCOUNTER 2017-10-19 09:24 | Emergency (ER) | payer OTHER ==
[~2017-10-19] VITALS: Ht 175.3 cm; Wt 80.0 kg
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
[2017-10-19 09:56] VITALS: BP 150/72; PULSE 111; RESP 18; TEMP 98.1; O2SAT 97
== END 2017-10-19 11:35 | disposition home or self-care (01) ==
LOC: NEPD 09:24
DX: F11.10 Opioid abuse, uncomplicated (principal); F19.90 Other psychoactive substance use, unspecified, uncomplicated; F15.90 Other stimulant use, unspecified, uncomplicated; F14.90 Cocaine use, unspecified, uncomplicated
CPT/HCPCS: 80307; 99283

== ENCOUNTER 2017-11-24 10:06 | Emergency (ER) | payer SELFPAY ==
[~2017-11-24] VITALS: Ht 177.8 cm; Wt 70.0 kg
[2017-11-24 10:21] VITALS: BP 117/72; PULSE 135; RESP 21; TEMP 98.3; O2SAT 99
[2017-11-24] MEDS ORDERED: SODIUM CHLOR 0.9% 1000 ML INJ 1,000 ML IV SCH (10:21)
[2017-11-24 10:27] VITALS: BP 117/72; PULSE 137; RESP 21; TEMP 98.3; O2SAT 98
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
[2017-11-24] MEDS ORDERED: HALOPERIDOL LACTATE 5 MG/ML AMP IV ONE (10:30)
[2017-11-24] MEDS ORDERED: SODIUM CHLORIDE 0.9% FLUSH 10 ML FLUSH IV FLUSH PRN (10:30)
[2017-11-24] MEDS ORDERED: LORazepam 2 MG/ML VIAL IV PUSH ONE (10:30)
--- NOTE | 2017-11-24 10:57 | RADRPT ---
EXAM DATE: 11/24/2017 10:47 AM EDT AGE/SEX: 31 years / Male INDICATIONS: Altered mental status. CLINICAL DATA: This is the patient's initial encounter. Patient reports that signs and symptoms have been present for 1 day and indicates a pain score of Nonresponsive. MEDICAL/SURGICAL HISTORY: . Endocarditis, substance abuse. None. RADIATION DOSE: 36.08 CTDI (mGy) COMPARISON: No prior exams available for comparison. TECHNIQUE: CT of the head without contrast. Using automated exposure control and adjustment of the mA and/or kV according to patient size, radiation dose was kept as low as reasonably achievable to ob tain optimal diagnostic quality images. FINDINGS: Cerebrum: The ventricles are normal for age. No evidence of midline shift, mass lesion, hemorrhage or acute infarction. No extraaxial fluid collections are seen. Posterior Fossa: The cerebellum and brainstem are intact. The 4th ventricle is midline. The cerebe llopontine angle is unremarkable. Extracranial: The visualized portion of the orbits is intact. Skull: The calvaria is intact. No evidence of skull fracture. CONCLUSION: 1. Negative CT Head non contrast. Electronically signed by: Kyler Ibanez MD 11/24/2017 10:55 AM EDT
[2017-11-24 11:41] LABS: AUTOMATED NEUTROPHIL # 12.6 TH/MM3 (1.8-7.7); BASOPHIL # 0.1 TH/MM3 (0-0.2); BASOPHIL % 0.5 % (0.0-2.0); EOSINOPHIL # 0.1 TH/MM3 (0-0.4); EOSINOPHIL % 0.6 % (0.0-4.0); HEMATOCRIT 40.8 % (39.0-51.0); HEMOGLOBIN 13.5 GM/DL (13.0-17.0); LYMPHOCYTE # 2.8 TH/MM3 (1.0-4.8); MEAN CELL VOLUME 83.5 FL (80.0-100.0); MEAN CORPUSCULAR HEMOGLOBIN 27.7 PG (27.0-34.0); MEAN CORPUSCULAR HGB CONC 33.1 % (32.0-36.0); MEAN PLATELET VOLUME 7.9 FL (7.0-11.0); MONO % 5.4 % (0.0-8.0); MONOCYTE # 0.9 TH/MM3 (0-0.9); NEUT % 76.5 % (16.0-70.0); PLATELET COUNT 415 TH/MM3 (150-450); RED BLOOD COUNT 4.89 MIL/MM3 (4.50-5.90); RED CELL DISTRIBUTION WIDTH 14.8 % (11.6-17.2); WHITE BLOOD COUNT 16.5 TH/MM3 (4.0-11.0)
[2017-11-24 12:08] LABS: ALBUMIN 3.8 GM/DL (3.4-5.0); ALT (GPT) 52 U/L (12-78); AST (GOT) 32 U/L (15-37); BICARBONATE 27.5 MEQ/L (21.0-32.0); BLOOD UREA NITROGEN 13 MG/DL (7-18); CALCIUM 8.4 MG/DL (8.5-10.1); CHLORIDE 100 MEQ/L (98-107); CREATININE 1.03 MG/DL (0.60-1.30); GLOMERULAR FILTRATION RATE 83 ML/MIN (>89); GLUCOSE,RANDOM 206 MG/DL (74-106); SODIUM (NA) 137 MEQ/L (136-145)
[2017-11-24 12:10] LABS: ALKALINE PHOSPHATASE 87 U/L (45-117); TOTAL BILIRUBIN ADULT 0.5 MG/DL (0.2-1.0); TOTAL PROTEIN 8.2 GM/DL (6.4-8.2); TROPONIN I LESS THAN 0.02 NG/ML (0.02-0.05)
[2017-11-24 12:21] LABS: ACETAMINOPHEN LESS THAN 2.0 MCG/ML (10.0-30.0)
[2017-11-24 12:29] VITALS: BP 128/77; PULSE 77; RESP 15; O2SAT 98
[2017-11-24 14:30] VITALS: BP 129/77; PULSE 80; RESP 15; O2SAT 97
[2017-11-24 14:34] LABS: BILIRUBIN, URINE NEG (NEG); BLOOD, URINE NEG (NEG); GLUCOSE,URINE NEG (NEG); KETONE, URINE NEG (NEG); MUCUS URINE FEW /lpf (OCC); NITRITE,URINE NEG (NEG); PH, URINE 6.5 (5.0-8.5); SQUAMOUS EPITHELIAL CELL URINE <1 /hpf (0-5); URINE COLOR YELLOW (YELLW/STRAW); URINE LEUKOCYTE ESTERASE NEG (NEG)
[2017-11-24 16:58] VITALS: BP 138/68; PULSE 63; RESP 15; O2SAT 97
[2017-11-24 20:12] VITALS: BP 136/80; PULSE 71; RESP 16; O2SAT 98
--- NOTE | 2017-11-25 15:13 | EKG ---
Date Performed: 11/24/2017 Time Performed: 10:23:18 PTAGE: 31 years EKG: SINUS TACHYCARDIA ABNORMAL RHYTHM ECG NO PREVIOUS TRACING DOCTOR: Amish Cook Interpretating Date/Time 11/25/2017 15:11:20
== END 2017-11-24 22:47 | disposition home or self-care (01) ==
LOC: NEPC 10:06
DX: F19.10 Other psychoactive substance abuse, uncomplicated (principal); R45.1 Restlessness and agitation; D72.829 Elevated white blood cell count, unspecified; R00.0 Tachycardia, unspecified; R94.31 Abnormal electrocardiogram [ECG] [EKG]
CPT/HCPCS: 70450; 80053; 80307; 81001; 82550; 84443; 84484; 85025; 93005; 96361; 96374; 96375; 99285; J1630; J2060; J7030

== ENCOUNTER 2017-12-12 01:48 | Emergency (ER) | payer OTHER ==
[~2017-12-12] VITALS: Ht 170.2 cm; Wt 65.0 kg
[2017-12-12 01:59] VITALS: BP 114/76; PULSE 100; RESP 12; TEMP 100.2; O2SAT 100
--- NOTE | 2017-12-12 02:35 | PD ---
HPI Chief Complaint: Alcohol/Drug Intoxication Time Seen by Provider: 02:33 Travel History International Travel<30 days: No Contact w/Intl Traveler<30days: No Traveled to known affect area: No History of Present Illness HPI This is a 32-year-old male who presents under March[place] act initiated by the Police Department. According to his paperwork he was observed running in the street and yelling and he was felt to be under the influence of several narcotics as well as alcohol. The patient does endorse frequent drug use. Symptoms are moderate, aggravated by drug use with no relieving factors. He has been seen here numerous times in the past under similar conditions. He has no other complaints at this time. [facility] Past Medical History Medical History: Denies Significant Hx Hx Anticoagulant Therapy: No Cardiovascular Problems: No Chemotherapy: No Cerebrovascular Accident: No Diabetes: No Diminished Hearing: No Respiratory: No Integumentary: Yes (HX CELLULITUS TO BLAT HAND) Immunizations Current: Yes ?: Not Past Surgical History Surgical History: No Previous Surgery Hysterectomy: No Social History Alcohol Use: Yes (OCCASIONAL) Tobacco Use: No Substance Use: Yes (IV DILAUDID, METH, CRACK, HEROIN ) Allergies-Medications (Allergen,Severity, Reaction): Coded Allergies: No Known Allergies (Unverified Adverse Reaction, Unknown, 12/12/17) Per pt. Reported Meds & Prescriptions Reported Meds & Active Scripts Active No Active Prescriptions or Reported Medications Review of Systems Except as stated in HPI: all other systems reviewed are Neg Physical Exam Narrative GENERAL: Well-developed well-nourished male in no acute distress. SKIN: Warm and dry. HEAD: Atraumatic. Normocephalic. EYES: Pupils equal and round. No scleral icterus. No injection or drainage. ENT: No nasal bleeding or discharge. Mucous membranes pink and moist. NECK: Trachea midline. No JVD. CARDIOVASCULAR: Regular rate and rhythm. No murmur appreciated. RESPIRATORY: No accessory muscle use. Clear to auscultation. Breath sounds equal bilaterally. GASTROINTESTINAL: Abdomen soft, non-tender, nondistended. Hepatic and splenic margins not palpable. MUSCULOSKELETAL: No obvious deformities. No clubbing. No cyanosis. No edema. NEUROLOGICAL: Awake and alert. No obvious cranial nerve deficits. Motor grossly within normal limits. Hyperverbal. Data Data Last Documented VS Vital Signs Date Time Temp Pulse Resp B/P (MAP) Pulse Ox O2 Delivery O2 Flow Rate FiO2 12/12/17 01:59 100.2 100 12 114/76 (89) 100 Orders Orders Ed Discharge Order (12/12/17 04:55) MDM Medical Decision Making Medical Screen Exam Complete: Yes Emergency Medical Condition: Yes Medical Record Reviewed: Yes Differential Diagnosis Polysubstance abuse, intoxication, acute psychosis Narrative Course The patient will remain here until he is sober and then he will be discharged. Diagnosis Primary Impression: Polysubstance abuse Referrals: [facility] Pt SpecificInfo: No Change to Meds Scripts No Active Prescriptions or Reported Meds Disposition: 01 DISCHARGE HOME Condition: Stable Alfredo Lemon Dec 12, 2017 02:35
== END 2017-12-12 05:05 | disposition home or self-care (01) ==
LOC: NEPD 01:48
DX: F19.129 Other psychoactive substance abuse with intoxication, unspecified (principal)
CPT/HCPCS: 99281

== ENCOUNTER 2018-04-02 23:18 | Inpatient (IN) ==
[2018-04-02] MEDS ORDERED: Sod Chloride 0.9% Inj 1,000 ML IV.SIG ONE (23:27)
[2018-04-03 00:02] LABS: Baso # (Auto) 0.1 th/mm3 (0.0-0.2); Baso % (Auto) 0.5 % (0.0-2.0); Hematocrit 39.1 % (39.0-51.0); Hemoglobin 13.4 gm/dL (13.0-17.0); Lymph # (Auto) 1.7 th/mm3 (1.0-4.8); Lymph % (Auto) 6.4 % (9.0-44.0); Mean Corpuscular HGB Conc 34.4 % (32.0-36.0); Mean Corpuscular Hemoglobin 27.8 pg (27.0-34.0); Mean Platelet Volume 8.2 fL (7.0-11.0); Mono % (Auto) 3.7 % (0.0-8.0); Neut # (Auto) 24.4 th/mm3 (1.8-7.7); Neut % (Auto) 89.4 % (16.0-70.0); Platelet Count 276 th/mm3 (150-450); Red Blood Count 4.83 mil/mm3 (4.50-5.90); White Blood Count 27.3 th/mm3 (4.0-11.0)
--- NOTE | 2018-04-03 00:13 | ED ---
HPI General Chief complaint: Psychiatric Symptoms Stated complaint: marchman act/ dbpd Time Seen by Provider: 04/02/18 23:23 Source: patient Limitations: altered mental status History of Present Illness HPI narrative: The patient is a 32 year old male who presents to the [facility] emergency department with a history of reportedly not feeling well since yesterday. He reports that he believes that he got a bad batch of heroin. The patient reports that he is an IV drug user. He reports that he does occasionally use crack cocaine, cocaine, and methamphetamine. He reports that he has been agitated since then, nauseated, vomited x1, and also experiencing muscle cramping. He reports that he did have a cramp in the left side of his lower chest wall earlier today. He denies having any shortness of breath. He denies having any diarrhea. He last moved his bowels earlier today. The patient reports having agitation and difficulty sitting still. Otherwise on review of systems, the patient denies having any known recent fevers, cough, congestion, neck pain, shortness of breath, abdominal pain, urinary symptoms, or neurologic symptoms. Related Data Home Medications Medication Instructions Recorded Confirmed No Known Home Medications 04/02/18 04/02/18 Allergies Allergy/AdvReac Type Severity Reaction Status Date / Time No Known Allergies Allergy Verified 04/02/18 23:57 Review of Systems ROS: all other systems reviewed are negative [facility] Family History Family History Other Family history normal Social History Social History Substance History: Active Abuse Second Hand Smoke Exposure: No Smoking Status: Never smoker How Often Do You Have a Drink Containing Alcohol: 4 or more times a week Recent Travel in [facility] within the Last 8 Weeks: No Recent Out of Country Travel within the Last 8 Weeks: No Substance Abuse Detail Heroin: Substance Use Status: Active Route Used Substance Abuse: Intramuscular and Intravenously Reason for Use: Feels Good and Get High Immunization History Tetanus Immunization: Unsure Exam Const General: cooperative and acute distress (Moderately agitated on arrival, having difficulty holding still. The patient is intermittently twitching his extremities.) Nutritional Appearance: well nourished Orientation: alert, awake and oriented x3 HENMT Head: normocephalic and atraumatic Nose: no nasal discharge and no epistaxis Mouth: other (Tacky mucous membranes.) Eyes Sclera: normal sclerae Pupils: PERRL Neck Neck: trachea midline and no JVD Resp Effort & Inspection: no use of accessory muscles Auscultation: clear to auscultation bilaterally Cardio Rate: tachycardic (Sinus tachycardia in the 1 teens, no pulse deficits to the extremities on simultaneous auscultation and palpation of his radial artery.) Rhythm: regular rhythm Heart Sounds: no murmurs GI Inspection: non-distended Palpation: soft, no hepatosplenomegaly, no guarding, not rigid and nontender Skin General: dry skin (warm) Neuro General: alert and awake Cranial Nerves: CN's II-XI intact bilaterally Speech: other (The patient has pressured speech.) Motor: strength 5/5 throughout, no movement abnormalities noted and other ( Agitated psychomotor activity on examination.) Sensory Exam: no sensory deficits noted Extrem General: normal to inspection, no clubbing, no cyanosis and no edema Psych Mood: labile mood Affect: irritable affect Judgment: fair Course Initial Documented Vital Signs Temperature 99.0 F 04/02/18 23:54 Pulse Rate 130 H 04/02/18 23:54 Respiratory Rate 20 04/02/18 23:54 Blood Pressure 172/91 H 04/02/18 23:54 Pulse Oximetry 100 04/02/18 23:54 Last Documented Vital Signs Temperature 99.0 F 04/02/18 23:54 Pulse Rate 91 H 04/03/18 00:16 Respiratory Rate 14 04/03/18 00:16 Blood Pressure 172/91 H 04/02/18 23:54 Pulse Oximetry 95 04/03/18 00:16 Medical Decision Making MDM Narrative Medical decision making narrative: During the course of the patient's emergency department visit, the patient's history, examination, and differential diagnosis were reviewed with the patient. The patient was placed on a quality assurance monitor body with oximetry and frequent blood pressure monitoring. The patient had IV access obtained and blood work sent for analysis. Diagnostic evaluation was started regarding the patient's current symptoms. The patient was initially provided normal saline IV fluids, Zofran for nausea, Ativan 1 mg IV for agitation. The patient's diagnostic studies are remarkable for a chemistry that shows an acute kidney injury with a BUN of 31, creatinine 2.04. The patient was continued on normal saline IV fluids. The patient's blood sugar on chemistry was 50, however this was rechecked at the bedside and noted to be 111. CPK was elevated at 1110, troponin I within normal limits. Urine drug screen was positive for opiates, cocaine, salicylate is 1.8, alcohol level less than 3, Tylenol less than 2, CBC is remarkable for a leukocytosis which is likely related to acute agitation as the patient has no other signs of infection. The patient will be admitted to the hospital for altered mentation and acute kidney injury after opiate and cocaine intoxication. The patient's case including history, pertinent physical examination findings, and laboratory studies were discussed with Dr. Rivers. It was agreed that the patient would be admitted to the hospitalist service. The patient's results were discussed with the patient, including the plan of care. I explained that further testing and/ or monitoring is indicated based on the patient's history, examination, and/ or laboratory findings. Therefore, I recommended admission for additional evaluation. The patient expressed understanding and was agreeable with this plan. The patient was admitted to the hospital in guarded condition and sent to a bed under the care of the [facility] service. Medical Screen Exam Complete: Yes Emergency Medical Condition: Yes Differential Diagnosis Differential Diagnosis: Sympathomimetic toxicity, versus rhabdomyolysis, versus acute kidney injury, versus electrolyte derangements Medical Records Medical records reviewed: Yes I reviewed the patient's medical records. Lab Data Lab results reviewed: Yes I reviewed the patient's lab results. Result diagrams: 04/02/18 23:35 04/02/18 23:35 Lab Results 04/02/18 04/02/18 04/03/18 Range/Units 23:35 23:35 04:46 WBC 27.3 H (4.0-11.0) th/mm3 RBC 4.83 (4.50-5.90) mil/mm3 Hgb 13.4 (13.0-17.0) gm/dL Hct 39.1 (39.0-51.0) % MCV 81.0 (80.0-100.0) fL MCH 27.8 (27.0-34.0) pg MCHC 34.4 (32.0-36.0) % RDW 15.0 (11.6-17.2) % Plt Count 276 (150-450) th/mm3 MPV 8.2 (7.0-11.0) fL Neut % (Auto) 89.4 H (16.0-70.0) % Lymph % (Auto) 6.4 L (9.0-44.0) % [place] % (Auto) 3.7 (0.0-8.0) % Eos % (Auto) 0.0 (0.0-4.0) % Baso % (Auto) 0.5 (0.0-2.0) % Neut # (Auto) 24.4 H (1.8-7.7) th/mm3 Lymph # (Auto) 1.7 (1.0-4.8) th/mm3 [place] # (Auto) 1.0 H (0.0-0.9) th/mm3 Eos # (Auto) 0.0 (0.0-0.4) th/mm3 Baso # (Auto) 0.1 (0.0-0.2) th/mm3 WBC Differential . Differential Comment Auto diff final Sodium 135 L (136-145) meq/L Potassium 4.3 (3.5-5.1) meq/L Chloride 95 L (98-107) meq/L Carbon Dioxide 25.0 (21.0-32.0) meq/L Anion Gap 15 (5-15) meq/L BUN 31 H (7-18) mg/dL Creatinine 2.04 H (0.60-1.30) mg/dL Estimated GFR 38 L (>89) mL/min POC Glucose 111 H (68-110) mg/dl Random Glucose 50 L (74-106) mg/dL Calcium 9.8 (8.5-10.1) mg/dL Total Bilirubin 1.9 H (0.2-1.0) mg/dL AST 48 H (15-37) U/L ALT 31 (12-78) U/L Alkaline Phosphatase 91 (45-117) U/L Total Creatine Kinase 1110 H (39-308) U/L CK-MB (CK-2) 6.2 H (0.5-3.6) ng/mL CK-MB (CK-2) % 0.6 (0.0-4.0) % Troponin I Less than 0.02 L (0.02-0.05) ng/mL Total Protein 9.2 H (6.4-8.2) g/dL Albumin 4.7 (3.4-5.0) g/dL Lipase 56 L (73-393) U/L Serum Alcohol Less than 3 (0-5) mg/dL Discharge Plan Discharge Disposition Patient Disposition: 30 Still Patient Discharge Details Diagnosis: Altered mental status, Polysubstance abuse, Acute kidney injury Physicians Team ED Provider: Amanda Kirby Primary Care Provider: UNKNOWN, Attending Provider: Gina Rivers Status ED Status: Admitted Observation Patient
[2018-04-03 00:16] LABS: Albumin 4.7 g/dL (3.4-5.0); Anion Gap 15 meq/L (5-15); Aspartate Aminotransferase 48 U/L (15-37); Blood Urea Nitrogen 31 mg/dL (7-18); Calcium 9.8 mg/dL (8.5-10.1); Chloride 95 meq/L (98-107); Glomerular Filtration Rate 38 mL/min (>89); Glucose,Random 50 mg/dL (74-106); Lipase 56 U/L (73-393); Potassium 4.3 meq/L (3.5-5.1); Sodium 135 meq/L (136-145)
[2018-04-03 00:17] LABS: Alanine Aminotransferase 31 U/L (12-78)
[2018-04-03 00:30] LABS: Alkaline Phosphatase 91 U/L (45-117); Creatine Kinase 1110 U/L (39-308); Total Protein 9.2 g/dL (6.4-8.2)
[2018-04-03 00:45] LABS: CKMB Percent 0.6 % (0.0-4.0); Creatine Kinase MB 6.2 ng/mL (0.5-3.6)
[2018-04-03] MEDS ORDERED: Sod Chloride 0.9% Inj 1,000 ML IV.SIG ONE (01:17)
[2018-04-03] MEDS ORDERED: Bisacodyl 10 MG Supp RECTAL PRN (03:54)
[2018-04-03] MEDS ORDERED: Acetaminophen 325 MG Tablet PO PRN (03:54)
--- NOTE | 2018-04-03 04:20 | P.HP ---
History of Present Illness Service: [facility] Primary Care Physician: UNKNOWN History of Present Illness: 32-year-old male with a past medical history significant for IV drug abuse presents to the emergency department for the evaluation of not feeling well for the past day. The patient states that he believes he got a bad batch of heroin. He is an IV drug user who reports using cocaine, heroin and methamphetamines. He reports since injecting what he believed to be heroin he has been agitated, nauseated and has had emesis x1. He also complains of muscle cramping. He denies any chest pain or shortness of breath. No fevers/ chills. Review of Systems All other systems reviewed negative except as stated in HPI [facility] - History History Provided By: Patient, Law Enforcement - Medical History Medical History: Medical History (Last Reviewed 04/03/18 @ 04:14 by Gina Rivers MD) Patient denies medical problems IVDU (intravenous drug user) - Surgical History Surgical History: Surgical History (Last Reviewed 04/03/18 @ 04:14 by Gina Rivers MD) No history of previous surgery - Family History Family History: Family History (Last Updated 04/03/18 @ 04:14 by Gina Rivers MD) Other Family history normal - Tobacco History Second Hand Smoke Exposure: No Smoking Status: Never smoker - Alcohol History How Often Do You Have a Drink Containing Alcohol: 4 or more times a week - Substance Use History Substance History: Active Abuse - Substance Use Type Heroin Status: Active Route Used: Intramuscular, Intravenously Reason for Use: Feels Good, Get High - Travel History Recent Travel in the [place] Within the Last 8 Weeks: No Recent Travel Out of the Country Within the Last 8 Weeks: No - Immunization History Tetanus Immunization: Unsure Medications and Allergies Active Medications: Active Medications Acetaminophen (Tylenol) 650 mg PO Q4H PRN PRN Reason: Temp > 100.4 Bisacodyl (Dulcolax Supp) 10 mg RECTAL DAILY PRN PRN Reason: SEVERE CONSITIPATION Sodium Chloride (Ns Inj) 1,000 mls @ 125 mls/hr IV.CONT .Q8H DEEPIKA Ondansetron HCl (Zofran Inj) 4 mg IV.PUSH Q6H PRN PRN Reason: NAUSEA OR VOMITING Sennosides (Senokot) 17.2 mg PO Q12H PRN PRN Reason: Moderate Constipation Allergies Allergy/AdvReac Type Severity Reaction Status Date / Time No Known Allergies Allergy Verified 04/02/18 23:57 Home Medications Medication Instructions Recorded Confirmed Type No Known Home Medications 04/02/18 04/02/18 History Exam Vital signs: Vital Signs 04/02/18 23:54 04/02/18 23:57 04/03/18 00:16 Temperature 99.0 F Pulse Rate 130 H 112 H 91 H Respiratory Rate 20 14 Blood Pressure 172/91 H Pulse Oximetry 100 95 Intake & Output 04/02/18 04/02/18 04/03/18 06:59 18:59 06:59 Intake Total 1999 Balance 1999 Weight 65 kg Intake: IV 1999 NS Inj 1,000 ML @ Wide Open IV. 1999 SIG BOLUS ONE Rx#:[id number] Narrative: Gen.: Agitated and twitching Head: Normocephalic. Atraumatic. EENT: Pupils equal round and reactive to light. Nose without drainage. Airway intact. Throat without injection. Cardiovascular: Regular rate and rhythm. No murmurs, rubs or gallops. Respiratory: Lungs clear to auscultation bilaterally. No wheezes or rhonchi. Abdomen: Soft, nontender, nondistended. No peritoneal signs. Musculoskeletal: No gross deformities. No edema. Skin: No obvious rashes or erythema. Neuro: Sensory and motor grossly intact. Cranial nerves II through XII grossly intact. Results - Labs CBC & Chem 7: 04/02/18 23:35 04/02/18 23:35 Labs: Laboratory Results - last 24 hr 04/02/18 04/02/18 23:35 23:35 WBC 27.3 H RBC 4.83 Hgb 13.4 Hct 39.1 MCV 81.0 MCH 27.8 MCHC 34.4 RDW 15.0 Plt Count 276 MPV 8.2 Neut % (Auto) 89.4 H Lymph % (Auto) 6.4 L [place] % (Auto) 3.7 Eos % (Auto) 0.0 Baso % (Auto) 0.5 Neut # (Auto) 24.4 H Lymph # (Auto) 1.7 [place] # (Auto) 1.0 H Eos # (Auto) 0.0 Baso # (Auto) 0.1 WBC Differential . Differential Comment Auto diff final Sodium 135 L Potassium 4.3 Chloride 95 L Carbon Dioxide 25.0 Anion Gap 15 BUN 31 H Creatinine 2.04 H Estimated GFR 38 L Random Glucose 50 L Calcium 9.8 Total Bilirubin 1.9 H AST 48 H ALT 31 Alkaline Phosphatase 91 Total Creatine Kinase 1110 H CK-MB (CK-2) 6.2 H CK-MB (CK-2) % 0.6 Troponin I Less than 0.02 L Total Protein 9.2 H Albumin 4.7 Lipase 56 L Serum Alcohol Less than 3 Caprini VTE Risk Assessment Caprini VTE Risk Assessment: No/Low Risk (score <= 1) Caprini Risk Assessment Model: Point Value = 1 Point Value = 2 Point Value = 3 Point Value = 5 Age 41-60 Minor surgery BMI > 25 kg/m2 Swollen legs Varicose veins or History of unexplained or recurrent spontaneous Oral contraceptives or hormone replacement Sepsis (< 1 month) Serious lung disease, including pneumonia (< 1 month) Abnormal pulmonary function Acute myocardial infarction Congestive heart failure (< 1 month) History of inflammatory bowel disease Medical patient at bed rest Age 61-74 Arthroscopic surgery Major open surgery (> 45 min) Laparoscopic surgery (> 45 min) Malignancy Confined to bed (> 72 hours) Immobilizing plaster cast Central venous access Age >= 75 History of VTE Family history of VTE Factor V Leiden Prothrombin [id number] Lupus anticoagulant Anticardiolipin antibodies Elevated serum homocysteine Heparin-induced thrombocytopenia Other congenital or acquired thrombophilia Stroke (< 1 month) Elective arthroplasty Hip, pelvis, or leg fracture Acute spinal cord injury (< 1 month) Prophylaxis Regimen: Total Risk Factor Score Risk Level Prophylaxis Regimen 0-1 Low Early ambulation 2 Moderate Order ONE of the following: *Sequential Compression Device (SCD) *Heparin 5000 units SQ BID 3-4 Higher Order ONE of the following medications: *Heparin 5000 units SQ TID *Enoxaparin/Lovenox 40 mg SQ daily (WT < 150 kg, CrCl > 30 mL/min) *Enoxaparin/Lovenox 30 mg SQ daily (WT < 150 kg, CrCl > 10-29 mL/min) *Enoxaparin/Lovenox 30 mg SQ BID (WT < 150 kg, CrCl > 30 mL/min) AND/OR *Sequential Compression Device (SCD) 5 or more Highest Order ONE of the following medications: *Heparin 5000 units SQ TID (Preferred with Epidurals) *Enoxaparin/Lovenox 40 mg SQ daily (WT < 150 kg, CrCl > 30 mL/min) *Enoxaparin/Lovenox 30 mg SQ daily (WT < 150 kg, CrCl > 10-29 mL/min) *Enoxaparin/Lovenox 30 mg SQ BID (WT < 150 kg, CrCl > 30 mL/min) AND *Sequential Compression Device (SCD) Assessment and Plan - Plan Assessment/plan: 1. Acute kidney injury/rhabdo CK 1110 Creatinine 2.04, baseline 1 IV fluid hydration Monitor renal function 2. IV drug abuse Cessation counseling provided FEN Renal diet Electrolyte: Monitor and replete as needed NS at 125 cc/hour
[2018-04-03] MEDS: Sod Chloride 0.9% Inj 1,000 ML IV.CONT SCH ×3 (04:39→22:14)
--- NOTE | 2018-04-03 10:21 | P.PN ---
Subjective Interval history: Follow-up polysubstance abuse, rhabdomyolysis and acute kidney injury. Patient does not have any complaints. He is drowsy but easily arousable oriented x4. States he is working on his drug use was on his way to [facility] Physical Exam Vital signs: Vital Signs 04/02/18 23:54 04/02/18 23:57 04/03/18 00:16 Temperature 99.0 F Pulse Rate 130 H 112 H 91 H Respiratory Rate 20 14 Blood Pressure 172/91 H Pulse Oximetry 100 95 04/03/18 04:58 04/03/18 06:51 04/03/18 08:00 Temperature 98.7 F 97.1 F L Pulse Rate 85 67 86 Respiratory Rate 14 15 17 Blood Pressure 124/75 111/62 111/58 L Pulse Oximetry 97 100 Intake & Output 04/02/18 04/03/18 04/03/18 18:59 06:59 18:59 Intake Total 1999 Balance 1999 Weight 65.9 kg Intake: IV 1999 NS Inj 1,000 ML @ Wide Open IV. 1999 SIG BOLUS ONE Rx#:[id number] Other: Weight On Admission 70.45 kg Narrative: Gen.: Well-developed and well-nourished Cardiovascular: Regular rate and rhythm. No murmurs, rubs or gallops. Respiratory: Lungs clear to auscultation bilaterally. No wheezes or rhonchi. Abdomen: Soft, nontender, nondistended. No peritoneal signs. Musculoskeletal: No gross deformities. No edema. Skin: No obvious rashes or erythema. Track felder bilateral antecubital area no signs of infection Neuro: Sensory and motor grossly intact. Cranial nerves II through XII grossly intact. Drowsy but easily arousable patient received Ativan Results - Labs CBC & Chem 7: 04/02/18 23:35 04/02/18 23:35 Laboratory Results - last 24 hr 04/02/18 04/02/18 04/03/18 23:35 23:35 04:46 WBC 27.3 H RBC 4.83 Hgb 13.4 Hct 39.1 MCV 81.0 MCH 27.8 MCHC 34.4 RDW 15.0 Plt Count 276 MPV 8.2 Neut % (Auto) 89.4 H Lymph % (Auto) 6.4 L [place] % (Auto) 3.7 Eos % (Auto) 0.0 Baso % (Auto) 0.5 Neut # (Auto) 24.4 H Lymph # (Auto) 1.7 [place] # (Auto) 1.0 H Eos # (Auto) 0.0 Baso # (Auto) 0.1 WBC Differential . Differential Comment Auto diff final Sodium 135 L Potassium 4.3 Chloride 95 L Carbon Dioxide 25.0 Anion Gap 15 BUN 31 H Creatinine 2.04 H Estimated GFR 38 L POC Glucose 111 H Random Glucose 50 L Calcium 9.8 Total Bilirubin 1.9 H AST 48 H ALT 31 Alkaline Phosphatase 91 Total Creatine Kinase 1110 H CK-MB (CK-2) 6.2 H CK-MB (CK-2) % 0.6 Troponin I Less than 0.02 L Total Protein 9.2 H Albumin 4.7 Lipase 56 L Serum Alcohol Less than 3 - Procedures none Assessment and Plan - Plan 1. Acute kidney injury/rhabdo CK 1110 Creatinine 2.04, baseline 1 IV fluid hydration Monitor renal function Check urinalysis 2. IV drug abuse Cessation counseling provided Follow-up with [facility] consult patient case coordinator FEN Renal diet Electrolyte: Monitor and replete as needed NS at 125 cc/hour Discharge Planning: Possible discharge tomorrow
[2018-04-03 16:30] LABS: Amphetamine Screen,Urine Neg (Neg); Barbiturate Screen,Urine Neg (Neg); Cannabinoid Screen,Urine Neg (Neg); Cocaine Screen,Urine Pos (Neg)
[2018-04-03 16:33] LABS: Opiate Screen,Urine Pos (Neg)
[2018-04-04] MEDS: Sod Chloride 0.9% Inj 1,000 ML IV.CONT SCH ×2 (02:21→03:23)
[2018-04-04 05:09] LABS: Bilirubin,Urine Negative (Negative); Clarity,Urine Clear (Clear); Color,Urine Yellow (Yellw/Straw); Glucose,Urine (UA) Negative (Negative); Leukocyte Esterase,Urine Negative (Negative); Mucus,Urine Few /lpf (Occasional); Nitrite,Urine Negative (Negative); Specific Gravity,Urine 1.028 (1.002-1.035)
[2018-04-04 06:27] LABS: Baso % (Auto) 0.5 % (0.0-2.0); Eos % (Auto) 1.3 % (0.0-4.0); Lymph % (Auto) 27.2 % (9.0-44.0); Mean Corpuscular HGB Conc 33.3 % (32.0-36.0); Mean Corpuscular Hemoglobin 27.7 pg (27.0-34.0); Mean Corpuscular Volume 83.3 fL (80.0-100.0); Mean Platelet Volume 7.8 fL (7.0-11.0); Mono # (Auto) 0.4 th/mm3 (0.0-0.9); Neut # (Auto) 2.2 th/mm3 (1.8-7.7); Platelet Count 147 th/mm3 (150-450); Red Blood Count 4.32 mil/mm3 (4.50-5.90); Red Cell Distribution Width 15.5 % (11.6-17.2); White Blood Count 3.7 th/mm3 (4.0-11.0)
[2018-04-04 07:38] LABS: Alanine Aminotransferase 25 U/L (12-78); Alkaline Phosphatase 55 U/L (45-117); Anion Gap 9 meq/L (5-15); Aspartate Aminotransferase 34 U/L (15-37); Blood Urea Nitrogen 19 mg/dL (7-18); Carbon Dioxide 24.1 meq/L (21.0-32.0); Chloride 105 meq/L (98-107); Creatine Kinase 331 U/L (39-308); Glomerular Filtration Rate Greater Than 89 mL/min (>89); Glucose,Random 135 mg/dL (74-106); Potassium 3.6 meq/L (3.5-5.1); Sodium 138 meq/L (136-145); Total Protein 6.2 g/dL (6.4-8.2)
[2018-04-04 07:55] LABS: CKMB Percent 1.5 % (0.0-4.0)
[2018-04-04 08:08] VITALS: BP 116/68; RESP 18; TEMP 97.7; O2SAT 97
--- NOTE | 2018-04-04 08:31 | P.PN ---
Subjective Interval history: Follow-up acute kidney injury, rhabdomyolysis and polysubstance abuse. He is doing okay no complaints alert and oriented x4. He is voiding. He is definitely seeking treatment with illicit drug use. States he was on his way there when he felt sick because of acute kidney injury Physical Exam Vital signs: Vital Signs 04/03/18 12:00 04/03/18 16:00 04/03/18 20:00 Temperature 97.4 F L 97.4 F L 97.6 F Pulse Rate 71 65 74 Respiratory Rate 17 16 18 Blood Pressure 98/56 L 108/59 L 114/68 Pulse Oximetry 98 98 98 04/03/18 20:07 04/04/18 00:00 04/04/18 04:00 Temperature 96.8 F L 97.4 F L Pulse Rate 79 58 L 46 L Respiratory Rate 15 15 Blood Pressure 119/65 115/73 Pulse Oximetry 99 98 04/04/18 08:00 Temperature 97.7 F Pulse Rate 68 Respiratory Rate 18 Blood Pressure 116/68 Pulse Oximetry 97 Intake & Output 04/03/18 04/04/18 04/04/18 18:59 06:59 18:59 Intake Total 1000 / 1000 1000 / 1000 Output Total 650 / 650 Balance 1000 / 1000 350 / 350 Weight 70.4 kg Intake: IV 1000 / 1000 1000 / 1000 NS Inj 1,000 ML @ 125 mls/hr IV 1000 / 1000 1000 / 1000 .CONT .Q8H [id number] Rx#:[id number] Output: Urine 650 / 650 Other: # Voids 2 Narrative: Gen.: Well-developed and well-nourished Cardiovascular: Regular rate and rhythm. No murmurs, rubs or gallops. Respiratory: Lungs clear to auscultation bilaterally. No wheezes or rhonchi. Abdomen: Soft, nontender, nondistended. No peritoneal signs. Musculoskeletal: No gross deformities. No edema. Skin: No obvious rashes or erythema. Track felder bilateral antecubital area no signs of infection Neuro: Sensory and motor grossly intact. Cranial nerves II through XII grossly intact. Alert and oriented Results - Labs CBC & Chem 7: 04/04/18 05:37 04/04/18 05:37 Laboratory Results - last 24 hr 04/03/18 04/04/18 04/04/18 15:50 04:26 05:37 WBC RBC Hgb Hct MCV MCH MCHC RDW Plt Count MPV Neut % (Auto) Lymph % (Auto) Mclean % (Auto) Eos % (Auto) Baso % (Auto) Neut # (Auto) Lymph # (Auto) Mclean # (Auto) Eos # (Auto) Baso # (Auto) WBC Differential Differential Comment Sodium 138 Potassium 3.6 Chloride 105 D Carbon Dioxide 24.1 Anion Gap 9 BUN 19 H Creatinine 0.79 Estimated GFR Greater than 89 Random Glucose 135 H Calcium 8.0 L D Total Bilirubin 0.5 AST 34 ALT 25 Alkaline Phosphatase 55 Total Creatine Kinase 331 H CK-MB (CK-2) 5.0 H CK-MB (CK-2) % 1.5 Total Protein 6.2 L D Albumin 3.0 L D Urine Color Yellow Urine Clarity Clear Urine pH 6.0 Ur Specific [place] 1.028 Urine Protein Negative Urine Glucose (UA) Negative Urine Ketones Trace H Urine Occult Blood Negative Urine Nitrate Negative Urine Bilirubin Negative Urine Urobilinogen Less than 2 Ur Leukocyte Esterase Negative Urine RBC 1 Urine WBC 1 Urine Mucus Few H Micro UA Comment Culture not ind Ur Microscopic Review Not Reportable Urine Culture Comments Culture not ind Urine Opiates Screen Pos H Ur Barbiturates Screen Neg Ur Amphetamines Screen Neg U Benzodiazepines Scrn Neg Urine Cocaine Screen Pos H U Cannabinoids Screen Neg 04/04/18 05:37 WBC 3.7 L RBC 4.32 L Hgb 12.0 L Hct 36.0 L MCV 83.3 MCH 27.7 MCHC 33.3 RDW 15.5 Plt Count 147 L D MPV 7.8 Neut % (Auto) 60.0 Lymph % (Auto) 27.2 [place] % (Auto) 11.0 H Eos % (Auto) 1.3 Baso % (Auto) 0.5 Neut # (Auto) 2.2 Lymph # (Auto) 1.0 [place]clean # (Auto) 0.4 Eos # (Auto) 0.0 Baso # (Auto) 0.0 WBC Differential . Differential Comment Auto diff final Sodium Potassium Chloride Carbon Dioxide Anion Gap BUN Creatinine Estimated GFR Random Glucose Calcium Total Bilirubin AST ALT Alkaline Phosphatase Total Creatine Kinase CK-MB (CK-2) CK-MB (CK-2) % Total Protein Albumin Urine Color Urine Clarity Urine pH Ur Specific [place] Urine Protein Urine Glucose (UA) Urine Ketones Urine Occult Blood Urine Nitrate Urine Bilirubin Urine Urobilinogen Ur Leukocyte Esterase Urine RBC Urine WBC Urine Mucus Micro UA Comment Ur Microscopic Review Urine Culture Comments Urine Opiates Screen Ur Barbiturates Screen Ur Amphetamines Screen U Benzodiazepines Scrn Urine Cocaine Screen U Cannabinoids Screen - Procedures none Assessment and Plan - Plan 1. Acute kidney injury/rhabdo. Urinalysis unremarkable. This is resolved after IV hydration. 2. Polysubstance abuse Cessation counseling provided Follow-up with [facility] consult caseworker 3. Toxic encephalopathy. Resolved DVT prophylaxis with early ambulation Discharge Planning: Discharge patient to home Condition on discharge: Improved Regular Diet as tolerated Ad Peggy activity no driving Rx written: None Follow-up with primary care physician and [facility]
[2018-04-04 10:33] VITALS: PULSE 66
== END 2018-04-04 11:14 | disposition home or self-care (01) ==
LOC: NEPC 23:18 → NEDA 23:18 → N06 04-03 06:35
PROVIDERS: ADMIT Internal Medicine; ATTEND Internal Medicine